=== PATIENT | male | born 1975 | race Caucasian/White ===

== ENCOUNTER → 2016-05-21 08:19 | Outpatient (CLI) | payer MEDICAID ==
[2015-09-06 06:39] VITALS: BMI 32.4
[~2016-05-21 08:19] MED LIST: BUSPAR 15 MG TA15 MG PO; BYSTOLIC5 MG PO; DESERYL100 MG PO; HYDROCODON-ACE1 EAC7 PO; PRILOSEC20 MG PO
== END | disposition home or self-care (01) ==
LOC: D.RAD 08:19
DX: R13.10 Dysphagia, unspecified (principal)